=== PATIENT | female | born 1995 | race American Indian/Alaskan Native ===

== ENCOUNTER 2021-01-03 09:56 | Emergency (ER) | payer SELFPAY ==
[2021-01-03 10:23] VITALS: BP 135/81
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
--- NOTE | 2021-01-03 11:31 | XRay Report ---
Lumbar spine radiograph, 4 views HISTORY: Pain COMPARISON: None FINDINGS: There is left convex curvature of the lumbar spine with apex at L3. Slight rotatory component is pres ent. Lumbar spinal alignment is preserved. Vertebral body heights are intact. There is no evidence of fracture. Disc spaces appear largely preserved. SI joints are intact. IMPRESSION: Lumbar rotolevoscoliosis. No evidence of acute process. Signer Name: Carson Sood MD Signed: 01/03/2021 11:26 AM Workstation Name: [id number]
== END 2021-01-03 13:15 | disposition home or self-care (01) ==
LOC: ED 09:56
DX: M54.5 Low back pain (principal); Z98.890 Other specified postprocedural states; Y99.8 Other external cause status; V89.2XXA Person injured in unspecified motor-vehicle accident, traffic, initial encounter; Y93.89 Activity, other specified; Y92.488 Other paved roadways as the place of occurrence of the external cause; Z79.899 Other long term (current) drug therapy
CPT/HCPCS: 72100; 99283